=== PATIENT | female | born 1980 | race Caucasian/White ===

== ENCOUNTER 2017-04-03 12:18 | Emergency (ER) | payer SELFPAY | END 2017-04-03 15:00 | disposition left against medical advice (07) | LOC: ER 14:32 | DX: Z04.8 Encounter for examination and observation for other specified reasons (principal); Z53.21 Procedure and treatment not carried out due to patient leaving prior to being seen by health care provider ==

== ENCOUNTER 2017-07-18 15:32 | Emergency (ER) | payer SELFPAY ==
[~2017-07-18] VITALS: Ht 165.1 cm; Wt 65.0 kg
[2017-07-18] MEDS ORDERED: FAMOTIDINE 20MG/2ML VIAL IV ONE (16:15)
[2017-07-18] MEDS ORDERED: SODIUM CHLORIDE 0.9% 1,000 ML IV ONE (16:15)
[2017-07-18] MEDS ORDERED: MORPHINE SULFATE 4 MG/ML CPJ (NOT FOR IM USE) IV ONE ×2 (16:15→17:15)
[2017-07-18] MEDS ORDERED: ONDANSETRON HCL 4MG/2ML VIAL IV ONE (16:15)
[2017-07-18 16:26] LABS: BASOPHILS % 0.5 % (0.0-2.0); HEMATOCRIT. 41.3 % (36.0-48.0); HEMOGLOBIN. 14.1 g/dL (12.0-16.0); LYMPHOCYTES % 16.5 % (20.0-50.0); MEAN CORPUSCULAR HEMOGLOBIN 30.3 pg (28.0-32.0); MEAN CORPUSCULAR VOLUME 88.5 fL (81.0-99.0); MEAN PLATELET VOLUME 8.5 fl (7.4-10.4); MONOCYTES % 6.2 % (2.0-8.0); NEUTROPHILS % 76.8 % (40.0-76.0); PLATELET 190 x1000/uL (130-400); RED BLOOD CELL COUNT 4.66 mill/uL (4.2-5.4); RED CELL DISTRIBUTION WIDTH 13.3 % (11.6-14.6)
[2017-07-18 16:31] LABS: CHLORIDE 99 mEq/L (98-107)
[2017-07-18 16:36] LABS: CARBON DIOXIDE 26 mEq/L (21-32)
[2017-07-18 16:57] LABS: CLARITY URINE CLEAR (CLEAR); COLOR URINE YELLOW (YELLOW); GLUCOSE URINE NEGATIVE (NEGATIVE); KETONES URINE NEGATIVE (NEGATIVE); LEUKOCYTE ESTERASE URINE TRACE (NEGATIVE); NITRITE URINE NEGATIVE (NEGATIVE); OCCULT BLOOD URINE NEGATIVE (NEGATIVE); PH URINE 7.5 (4.5-8.0); PROTEIN URINE NEGATIVE (NEGATIVE); SPECIFIC GRAVITY URINE 1.009 (1.005-1.030)
[2017-07-18] MEDS ORDERED: ACETAMINOPHEN 500MG TABLET PO ONE (17:15)
[2017-07-18] MEDS ORDERED: LEVOFLOXACIN 750MG PREMIX 150 ML IV ONE (19:00)
[2017-07-18 22:40] VITALS: BP 110/68
== END 2017-07-19 00:02 | disposition home or self-care (01) ==
LOC: ER 15:39
DX: J18.9 Pneumonia, unspecified organism (principal); I95.9 Hypotension, unspecified; E78.00 Pure hypercholesterolemia, unspecified; F17.200 Nicotine dependence, unspecified, uncomplicated
CPT/HCPCS: 36415; 74176; 80053; 81001; 81025; 83690; 85025; 87804; 96361; 96365; 96375; 96376; 99285; 99406; J1956; J2270; J2405; J3490; J7030; Z7610

== ENCOUNTER 2017-09-15 14:17 | Emergency (ER) | payer MEDICAID ==
[~2017-09-15] VITALS: Ht 165.1 cm; Wt 65.0 kg
[2017-09-15 14:25] VITALS: BP 136/94
== END 2017-09-15 18:11 | disposition left against medical advice (07) ==
LOC: ER 14:17
DX: R21 Rash and other nonspecific skin eruption (principal); Z53.21 Procedure and treatment not carried out due to patient leaving prior to being seen by health care provider

== ENCOUNTER 2019-01-05 07:19 | Emergency (ER) | payer SELFPAY ==
[~2019-01-05] VITALS: Ht 165.1 cm; Wt 63.0 kg
[2019-01-05 08:03] VITALS: BP 123/83
== END 2019-01-05 10:09 | disposition home or self-care (01) ==
LOC: ER 07:19
DX: H66.92 Otitis media, unspecified, left ear (principal); J06.9 Acute upper respiratory infection, unspecified; E78.00 Pure hypercholesterolemia, unspecified; F17.200 Nicotine dependence, unspecified, uncomplicated; Z98.51 Tubal ligation status
CPT/HCPCS: 71045; 99283

== ENCOUNTER 2021-01-11 11:24 | Emergency (ER) | payer SELFPAY ==
[~2021-01-11] VITALS: Ht 165.1 cm; Wt 60.0 kg
[2021-01-11] MEDS ORDERED: IBUPROFEN 600MG TABLET PO STA (11:40)
[2021-01-11 12:15] LABS: BASOPHILS % 0.3 % (0.0-2.0); EOSINOPHILS % 1.1 % (0.0-5.0); HEMATOCRIT. 38.5 % (36.0-48.0); HEMOGLOBIN. 12.9 g/dL (12.0-16.0); LYMPHOCYTES % 23.8 % (20.0-50.0); MEAN CORPUSCULAR HEMOGLOBIN 30.3 pg (28.0-32.0); MEAN CORPUSCULAR VOLUME 90.4 fL (81.0-99.0); MEAN PLATELET VOLUME 8.5 fl (7.4-10.4); MONOCYTES % 8.2 % (2.0-8.0); NEUTROPHILS % 66.6 % (40.0-76.0); PLATELET 232 x1000/uL (130-400); RED BLOOD CELL COUNT 4.26 mill/uL (4.2-5.4); RED CELL DISTRIBUTION WIDTH 12.9 % (11.6-14.6)
[2021-01-11 12:21] LABS: CHLORIDE 107 mEq/L (98-107)
[2021-01-11 12:26] LABS: ETHANOL BLOOD 82 mg/dL
[2021-01-11] MEDS ORDERED: IBUP-2029 MT (12:44)
[2021-01-11 12:49] VITALS: BP 121/73
== END 2021-01-11 13:23 | disposition home or self-care (01) ==
LOC: ER 11:49
DX: R07.89 Other chest pain (principal); R03.0 Elevated blood-pressure reading, without diagnosis of hypertension; Z87.01 Personal history of pneumonia (recurrent)
CPT/HCPCS: 36415; 71045; 80053; 80320; 85025; 93005; 99285; G0480

== ENCOUNTER 2021-04-10 08:26 | Emergency (ER) | payer MEDICAID, OTHER ==
[~2021-04-10] VITALS: Ht 165.1 cm; Wt 61.0 kg
[~2021-04-10 08:26] MED LIST: IBUP-2029 MT
[2021-04-10] MEDS ORDERED: IBUPROFEN 600MG TABLET PO ONE (09:00)
[2021-04-10] MEDS ORDERED: NAPR-681 MT (09:56)
[2021-04-10 10:14] VITALS: BP 124/89
== END 2021-04-10 10:15 | disposition home or self-care (01) ==
LOC: ER 08:26
DX: S60.031A Contusion of right middle finger without damage to nail, initial encounter (principal); S60.021A Contusion of right index finger without damage to nail, initial encounter; W23.0XXA Caught, crushed, jammed, or pinched between moving objects, initial encounter; Y93.89 Activity, other specified; Y92.89 Other specified places as the place of occurrence of the external cause
CPT/HCPCS: 73130; 99283

== ENCOUNTER 2022-06-07 09:11 | Emergency (ER) | payer OTHER ==
[~2022-06-07] VITALS: Ht 165.1 cm; Wt 68.0 kg
[~2022-06-07 09:11] MED LIST changes: +NAPR-681 MT
[2022-06-07 10:01] VITALS: BP 105/61
[2022-06-07] MEDS ORDERED: CEPH500C2 MT (10:51)
[2022-06-07] MEDS ORDERED: SULF1TAB48 MT (10:51)
== END 2022-06-07 11:02 | disposition home or self-care (01) ==
LOC: ER 09:11
DX: L03.111 Cellulitis of right axilla (principal); F17.200 Nicotine dependence, unspecified, uncomplicated; F15.10 Other stimulant abuse, uncomplicated
CPT/HCPCS: 99281; 99283

== ENCOUNTER 2022-10-04 05:52 | Emergency (ER) | payer MEDICAID, OTHER ==
[~2022-10-04] VITALS: Ht 165.1 cm; Wt 64.0 kg
[~2022-10-04 05:52] MED LIST changes: +CEPH500C2 MT; +SULF1TAB48 MT
[2022-10-04] MEDS ORDERED: ONDANSETRON HCL 4MG/2ML INJ IV ONE ×2 (07:00→14:00)
[2022-10-04] MEDS ORDERED: MORPHINE SULFATE 4 MG/ML CPJ (NOT FOR IM USE) IV ONE (07:00)
[2022-10-04 07:37] LABS: BASOPHILS % 0.1 % (0.0-2.0); HEMOGLOBIN. 12.7 g/dL (12.0-16.0); MEAN CORPUSCULAR HEMOGLOBIN 29.8 pg (28.0-32.0); MEAN CORPUSCULAR VOLUME 89.4 fL (81.0-99.0); MONOCYTES % 8.2 % (2.0-8.0); NEUTROPHILS % 83.7 % (40.0-76.0); PLATELET 209 x1000/uL (130-400); RED BLOOD CELL COUNT 4.25 mill/uL (4.2-5.4); RED CELL DISTRIBUTION WIDTH 14.8 % (11.6-14.6)
[2022-10-04 07:46] LABS: CHLORIDE 101 mEq/L (98-107)
[2022-10-04 08:36] LABS: PROTHROMBIN TIME 10.3 sec (9.6-11.0)
[2022-10-04] MEDS ORDERED: SODIUM CHLORIDE 0.9% 1,000 ML IV ONE (09:30)
[2022-10-04 10:03] LABS: CLARITY URINE CLEAR (CLEAR); COLOR URINE YELLOW (YELLOW); KETONES URINE TRACE (NEGATIVE); LEUKOCYTE ESTERASE URINE 2+ (NEGATIVE); NITRITE URINE POSITIVE (NEGATIVE); OCCULT BLOOD URINE NEGATIVE (NEGATIVE); PH URINE 6.5 (4.5-8.0); PROTEIN URINE NEGATIVE (NEGATIVE); SPECIFIC GRAVITY URINE 1.018 (1.005-1.030); UROBILINOGEN URINE 0.2 E.U./dL (0.2-1.0)
[2022-10-04 10:21] VITALS: BP 134/100
[2022-10-04 10:46] LABS: *BARBITURATES SCREEN URINE NEGATIVE (NEGATIVE); *BENZODIAZEPINES SCREEN URINE NEGATIVE (NEGATIVE); *COCAINE SCREEN URINE NEGATIVE (NEGATIVE); CANNABINOID URINE SCREEN NEGATIVE (NEGATIVE); METHADONE URINE SCREEN NEGATIVE (NEGATIVE); PHENCYCLIDINE URINE SCREEN NEGATIVE (NEGATIVE)
[2022-10-04 10:53] LABS: *AMPHETAMINES SCREEN URINE PRESUMTIVE POSITIVE (NEGATIVE); OPIATES URINE SCREEN PRESUMTIVE POSITIVE (NEGATIVE)
[2022-10-04] MEDS ORDERED: IOHEXOL-300 100 ML BOTTLE ONE (11:26)
[2022-10-04] MEDS ORDERED: PIPERACILLIN/TAZOBACTAM 3.375GM/50ML PREMIX IV NR (14:00)
== END 2022-10-04 13:30 | disposition admitted as inpatient to this hospital (09) ==
LOC: ER 05:52 → EDBEDREQTM 13:55 → EDBEDREQ 13:55 → CANBEDREQ 13:56
DX: K35.80 Unspecified acute appendicitis (principal); F19.10 Other psychoactive substance abuse, uncomplicated; F15.10 Other stimulant abuse, uncomplicated
CPT/HCPCS: 36415; 74177; 80053; 80305; 81003; 81025; 83690; 85025; 85610; 87086; 96361; 96374; 96375; 99285; J2270; J2405; J7030; Q9967

== ENCOUNTER 2022-10-04 14:45 | Emergency (ER) | payer MEDICAID ==
[~2022-10-04] VITALS: Ht 177.8 cm; Wt 65.0 kg
[2022-10-04 15:10] VITALS: BP 132/88
[2022-10-06] MEDS ORDERED: HYDR-4001 MT (02:25)
[2022-10-06] MEDS ORDERED: DOCU-138 MT (02:25)
== END 2022-10-05 01:33 | disposition left against medical advice (07) ==
LOC: ER 14:45
DX: Z53.21 Procedure and treatment not carried out due to patient leaving prior to being seen by health care provider (principal)

== ENCOUNTER 2022-10-06 00:21 | Emergency (ER) | payer MEDICAID ==
[~2022-10-06] VITALS: Ht 162.6 cm; Wt 64.0 kg
[2022-10-06] MEDS ORDERED: DOCUSATE SODIUM 100MG CAPSULE PO ONE (01:15)
[2022-10-06] MEDS ORDERED: HYDROCODONE/ACETAMINOPHEN 5/325MG TABLET PO ONE (01:15)
[2022-10-06] MEDS ORDERED: HYDR-4001 MT (02:25)
[2022-10-06] MEDS ORDERED: DOCU-138 MT (02:25)
[2022-10-06 05:26] VITALS: BP 128/75
== END 2022-10-06 06:40 | disposition home or self-care (01) ==
LOC: ER 00:21
DX: G89.18 Other acute postprocedural pain (principal); R10.9 Unspecified abdominal pain; Z90.49 Acquired absence of other specified parts of digestive tract
CPT/HCPCS: 99283

== ENCOUNTER 2022-11-06 01:17 | Emergency (ER) | payer MEDICAID ==
[~2022-11-06 01:17] MED LIST changes: +DOCU-138 MT; +HYDR-4001 MT
== END 2022-11-06 01:51 | disposition left against medical advice (07) ==
LOC: ER 01:17
DX: Z53.21 Procedure and treatment not carried out due to patient leaving prior to being seen by health care provider (principal)

== ENCOUNTER 2022-11-07 06:46 | Emergency (ER) | payer MEDICAID ==
[~2022-11-07] VITALS: Ht 165.1 cm; Wt 61.0 kg
[2022-11-07 07:04] VITALS: BP 163/127
== END 2022-11-07 10:09 | disposition left against medical advice (07) ==
LOC: ER 06:55
DX: R10.2 Pelvic and perineal pain (principal); R30.0 Dysuria
CPT/HCPCS: 99281

== ENCOUNTER 2022-12-31 02:39 | Emergency (ER) | payer MEDICAID, OTHER ==
[~2022-12-31] VITALS: Ht 165.1 cm; Wt 71.5 kg
[2022-12-31 03:28] VITALS: BP 126/94
== END 2022-12-31 06:30 | disposition left against medical advice (07) ==
LOC: ER 02:39
DX: Z53.21 Procedure and treatment not carried out due to patient leaving prior to being seen by health care provider (principal)

== ENCOUNTER 2024-02-18 10:58 | Emergency (ER) | payer OTHER ==
[2024-02-19] MEDS ORDERED: BO1 TP (06:10)
== END 2024-02-18 13:04 | disposition left against medical advice (07) ==
LOC: ER 10:58
DX: Z76.1 Encounter for health supervision and care of foundling (principal); Z53.21 Procedure and treatment not carried out due to patient leaving prior to being seen by health care provider

== ENCOUNTER 2024-02-19 05:04 | Emergency (ER) | payer OTHER ==
[~2024-02-19] VITALS: Ht 165.1 cm; Wt 64.0 kg
[2024-02-19 05:17] VITALS: O2SAT 99
[2024-02-19] MEDS: LIDOCAINE HCL/PF 1% 10 MG/ML 5ML VIAL INFIL ONE (05:49)
[2024-02-19] MEDS: BACITRACIN ZINC OINT UDPKT TOP ONE (05:49)
[2024-02-19] MEDS: TETANUS, DIPHTHERIA, PERTUSSIS VAC/PF 0.5ML (>10YR OLD) IM ONE (05:57)
[2024-02-19] MEDS ORDERED: BO1 TP (06:10)
[2024-02-19 06:18] VITALS: BP 138/86; PULSE 82; RESP 18; TEMP 97.8
== END 2024-02-19 06:10 | disposition home or self-care (01) ==
LOC: ER 05:04
DX: S61.419A Laceration without foreign body of unspecified hand, initial encounter (principal); T19.2XXA Foreign body in vulva and vagina, initial encounter; Z90.49 Acquired absence of other specified parts of digestive tract; Z79.899 Other long term (current) drug therapy; X58.XXXA Exposure to other specified factors, initial encounter; Y93.89 Activity, other specified; Y92.89 Other specified places as the place of occurrence of the external cause; Y99.8 Other external cause status
CPT/HCPCS: 90715; 12001; 90471; 99284; J3490; Z7610 ×2

== ENCOUNTER 2024-06-25 15:08 | Emergency (ER) | payer MEDICAID, OTHER ==
[~2024-06-25] VITALS: Ht 165.1 cm; Wt 68.0 kg
[~2024-06-25 15:08] MED LIST changes: +BO1 TP
[2024-06-25 15:26] VITALS: BP 131/100; RESP 12; TEMP 98.3; O2SAT 97
[2024-06-25 15:29] VITALS: PULSE 105
[2024-06-25] MEDS ORDERED: AMOX1TAB16 MT (17:00)
== END 2024-06-25 18:55 | disposition home or self-care (01) ==
LOC: ER 15:08
DX: T19.2XXA Foreign body in vulva and vagina, initial encounter (principal); Z90.49 Acquired absence of other specified parts of digestive tract; X58.XXXA Exposure to other specified factors, initial encounter; Y93.89 Activity, other specified; Y92.89 Other specified places as the place of occurrence of the external cause; Y99.8 Other external cause status
CPT/HCPCS: 99284; Z7610